=== PATIENT | male | born 1990 | race Two or more races ===

== ENCOUNTER 2018-03-23 22:18 | Emergency (ER) | payer BC, OTHER ==
[2018-03-23 22:38] VITALS: BP 143/87
[2018-03-24] MEDS ORDERED: CEPHALEXIN 500 MG CAPSULE PO ONE (00:02)
--- NOTE | 2018-03-24 00:10 | ER Document Report ---
ED General - General Chief Complaint: Laceration Stated Complaint: LACERATION TO LEFT HAND Time Seen by Provider: 03/24/18 00:00 Mode of Arrival: Ambulatory Information source: Patient Notes: Otherwise healthy 27-year-old male presents with possible wound infection. Patient reports that he had a laceration to the palm of his left hand, reports that he had sutures placed by [facility], sutures were in place for approximately 7 days and sutures were removed today. Patient reports that the provider who removed the sutures left one suture in place as he stated that the wound was not completely closed in that area. Patient reports that when he got home the wound opened up even more and patient noted that there was a yellowish discharge from the wound. Patient denies any fevers, erythema or streaking from the wound. TRAVEL OUTSIDE OF THE [place] IN LAST 30 DAYS: No - Related Data Allergies/Adverse Reactions: No Known Allergies Allergy (Verified 03/23/18 23:53) Past Medical History - General Information source: Patient - Social History Smoking Status: Never Smoker Chew tobacco use (# tins/day): No Frequency of alcohol use: None Family History: Reviewed & Not Pertinent Patient has suicidal ideation: No Patient has homicidal ideation: No - Medical History Medical History: Negative Renal/ Medical History: Denies: Hx Peritoneal Dialysis Surgical Hx: Negative Past Surgical History: Reports: Hx Orthopedic Surgery - left shoulder 3 years ago - Immunizations Immunizations up to date: Yes Hx Diphtheria, Pertussis, Tetanus Vaccination: Yes Review of Systems - Review of Systems Constitutional: No symptoms reported EENT: No symptoms reported Cardiovascular: No symptoms reported Respiratory: No symptoms reported Gastrointestinal: No symptoms reported Genitourinary: No symptoms reported Male Genitourinary: No symptoms reported Musculoskeletal: No symptoms reported Skin: See HPI Hematologic/Lymphatic: No symptoms reported Neurological/Psychological: No symptoms reported Physical Exam - Vital signs Vitals: Temp Pulse BP Pulse Ox 98.9 F 77 143/87 H 98 03/23/18 22:37 03/23/18 22:37 03/23/18 22:37 03/23/18 22:37 - Notes Notes: PHYSICAL EXAMINATION: GENERAL: Well-appearing, well-nourished and in no acute distress. HEAD: Atraumatic, normocephalic. EYES: Pupils equal round and reactive to light, extraocular movements intact, sclera anicteric, conjunctiva are normal. ENT: Nares patent, oropharynx clear without exudates. Moist mucous membranes. NECK: Normal range of motion, supple without lymphadenopathy LUNGS: Breath sounds clear to auscultation bilaterally and equal. No wheezes rales or rhonchi. HEART: Regular rate and rhythm without murmurs ABDOMEN: Soft, nontender, nondistended abdomen. No guarding, no rebound. No masses appreciated. Musculoskeletal: Normal range of motion, no pitting or edema. No cyanosis. NEUROLOGICAL: Cranial nerves grossly intact. Normal speech, normal gait. Normal sensory, motor exams PSYCH: Normal mood, normal affect. SKIN: Mild erythema noted to left palm near healing laceration site. There is one suture in place with a poorly healing open laceration. There is a yellow exudate in the wound bed. No odor noted. No streaking. Course - Re-evaluation Re-evalutation: Otherwise healthy 27-year-old male presents with possible wound infection to left palm (see HPI and assessment). Will remove remaining suture, clean wound well with Shur-Clens and normal saline. Will Place Vaseline gauze over wound with instructions for patient to leave in place for 2 days. Patient also instructed to not put any more hydrogen peroxide on the wound. Patient will follow-up in 2-3 days with his primary care provider for a wound recheck. Patient will also be started on oral antibiotics. Patient understands ED return precautions. - Vital Signs Vital signs: Temp Pulse Resp BP Pulse Ox 98.9 F 77 143/87 H 98 03/23/18 22:37 03/23/18 22:37 03/23/18 22:37 03/23/18 22:37 Discharge - Discharge Clinical Impression: Wound infection Condition: Stable Disposition: HOME, SELF-CARE Additional Instructions: It appears that the wound to your left hand starting to get infected. Please do not use any hydrogen peroxide to the wound anymore. We have placed a special dressing on it today, please leave this dressing in place for 2 days. After 2 days please use a antibiotic ointment such as bacitracin to the area twice daily and keep covered. Please take the antibiotics as prescribed, finish the entire prescription. Please follow-up with your primary care provider in the next 3-5 days for a wound recheck. Please return to the emergency department if you develop signs or symptoms of worsening infection such as drainage from the wound, increasing redness or swelling to your hand, streaking up your hand or arm. Or if you develop fever. I am providing you a work note for the next 3 days. You will need to follow-up with your Workmen's Comp. provider regarding your Workmen's Comp. claim. Prescriptions: Cephalexin Monohydrate [Keflex 500 mg Capsule] 500 mg PO Q6H 7 Days #28 capsule
== END 2018-03-24 00:49 | disposition home or self-care (01) ==
LOC: ER 22:18
DX: S61.412A Laceration without foreign body of left hand, initial encounter (principal); L08.9 Local infection of the skin and subcutaneous tissue, unspecified; X58.XXXA Exposure to other specified factors, initial encounter
CPT/HCPCS: 99282

== ENCOUNTER 2020-02-25 13:08 | Emergency (ER) | payer OTHER ==
[2020-02-25 13:14] VITALS: BP 153/94
[2020-02-25] MEDS ORDERED: IBUPROFEN 800 MG TABLET PO ONE (14:21)
[2020-02-25] MEDS ORDERED: LIDOCAINE 5% (700 MG) TRANSDERMAL ADH..PATCH TP ONE (14:21)
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
== END 2020-02-25 15:48 | disposition home or self-care (01) ==
LOC: ER 13:08
DX: M54.5 Low back pain (principal); M54.9 Dorsalgia, unspecified; V87.7XXA Person injured in collision between other specified motor vehicles (traffic), initial encounter
CPT/HCPCS: 72110; 99283